=== PATIENT | female | born 1965 | race Caucasian/White ===

== ENCOUNTER → 2017-05-21 15:26 | Outpatient (CLI) | payer OTHER, SELFPAY ==
--- NOTE | 2017-05-21 15:28 | VDLE_ITS ---
Reason For Study: swelling RIGHT LEFT CFV is compressible, spontaneous, phasic, GSV is normal. competent and demonstrates normal CFV is compressible, spontaneous, phasic, augmentation. competent, and demonstrates normal Procedure augmentation. Exam performed in department. FV is compressible, spontaneous, phasic, The exam was diagnostic. competent and demonstrates normal A preliminary report was called and/or faxed augmentation. to DR. Muñiz @ [phone]. POP V is compressible, spontaneous, phasic, Images #13 & #14 are Right CFV. competent and demonstrates normal augmentation. T/P Trunk is compressible. PTV is compressible. LT PerV is compressible. Interpretation Summary Deep veins of the left lower extremity are patent and compressible segmentally. There is no evidence of left lower extremity deep vein thrombosis. Valvular competence appears intact within the proximal deep venous system on the left . The left greater saphenous vein appears patent and compressible segmentally. Ordering Physician: Imani Muñiz Referring Physician: Imani Muñiz Performed By: Cielo Hoover, CHEMA, RVT
== END ==
PROVIDERS: Family Provider Internal Medicine; PCP Internal Medicine; Visit Provider Internal Medicine
DX: M79.89 Other specified soft tissue disorders (principal)
CPT/HCPCS: 93971

== ENCOUNTER 2017-06-04 15:30 | Outpatient (RCR) | payer OTHER, SELFPAY ==
--- NOTE | 2017-05-10 12:31 | HP.PTEVAL ---
Patient's Visit Information KAROLINA BAUTISTA is a 51 year old F referred to Physical Therapy by DO FILEMON Espinal with a diagnosis of NECK PAIN. Date of Evaluation: 05/10/17 Physical Therapist: Aretha Henderson - Visit Plan Frequency: 2-3x /Week Duration: 4-6 Weeks Plan: POSTURE CORRECTION/STRENGTHENING, INSTRUCTION IN APPROPRIATE BODY MECHANICS/ERGONOMICS AND ACTIVITY MODIFICATIONS. CERVICAL HANNAH SB STRETCHING AND RETRACTION. HANNAH UE ROM, STRETCHING AND STRENGTHENING. HEP INSTRUCTION. CERVICAL STM, US AND E-STIM. CONSIDER DRY NEEDLING. 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 Disability: NO. Present symptoms: HANNAH POSTERIOR NECK PAIN. NO UE SX'S. Present since: ABOUT 6 MONTHS AGO. Pain Scale: WORST 8/10, LEAST 2/10. Currently: 2/10. Commenced as a result of: NO APPARENT REASON. Symptoms at onset: SAME. Worse: STRESS, GETTING IN A HURRY AT WORK, GETTING IN THE CAR AND LOOKING BACK. MOSTLY TURNING HEAD LEFT AND RIGHT. Better: MUSCLE RELAXER, STRETCHING, YOGA, MASSAGE. Disturbed sleep: NO. Previous history/Previous treatment: UNREMARKABLE. NO CHIROPRACTOR. NO SHON'S. NO NECK SURGERY. MASSAGE RECENTLY HELPED. Gait: NORMAL. Accidents: NO. Unexplained weight loss: NO. Imaging: NECK X-RAY - ARTHRITIS. DDD. PMH: DEPRESSION, OVER ACTIVE BLADDER. 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 - Objective Sitting Posture: POOR. Standing Posture: FAIR. PATIENT HAS FORWARD HEAD AND ROUNDED SHOULDERS. Lateral shift: NO TORTICOLLIS. Relevant shift: N/A. Active Correction of posture: BETTER. Other Observations: PATIENT IS PLEASANT AND COOPERATIVE TO WORK WITH. Motor deficit: HANNAH UE'S 5/5 WITH MMT AND HANNAH SYSTEMS ADMINISTRATION ANALYST 55 LBS. Sensory deficit: HANNAH UE LIGHT TOUCH SENSATION IS INTACT AND SYMMETRICAL. ROM deficit: HANNAH UE ROM WFL AND NO PAIN WITH TESTING. Dural Signs: NEGATIVE. CERVICAL MVMT LOSS: FLEX - NIL, EXT - MIN, PRO - NIL, RET - MOD, HANNAH ROT - NIL, HANNAH SB - MOD. WITH LEFT ROATION PATIENT HAS AUDIBLE AND VISUAL POPPING/CLINCKING IN HER NECK. AT TIMES IT IMPROVED WITH REPETITION AND AT TIMES IT DIDN'T. SHE WAS TESTED IN ERECT, SLOUCHED AND PARTIALLY SLOUCHED POSTURES WITHOUT CONSISTENCY IN THE CLICKING. OVER-ALL SHE FELT BETTER AFTER THE TESTING THOUGH REPORTING 1/10 NECK PAIN. SCAPULAR STRENGTH - POOR. Palpation: INCREASED MUSCLE TONE WITH MULTIPLE TRIGGER POINTS HANNAH UT'S. NO TENDERNESS WITH PALPATION OF CERCICAL SPINOUS PROCESSES. - Goals Goal 1:: DECREASE C/O NECK PAIN AND CLICKING/POPPING Goal Time Frame: 4-6 Weeks Goal 2:: IMPROVE WORKING, READING, DRIVING AND RECREATIONAL FUNCTION Goal Time Frame: 4-6 Weeks Goal 3:: INSTRUCT IN PROPHYLAXIS Goal Time Frame: 4-6 Weeks - Rehabilitation Potential Rehabilitation Potential: Good - Anticipated Interventions Patient/Client Instruction: Educate patient on: Condition, Plan of Care, Risk Factors, Benefits of Fitness Program For the Purpose of:: To improve self management Therapeutic Exercise to Include: Strength training, Body mechanics, Postural training, Flexibilty training, Scapular Strength/Stabilization For the Purpose of:: To improve ability of physical actions for home/community/work/leisure Manual Therapy Techniques to Include: Soft tissue mobilization For the Purpose of:: To decrease pain, To increase ROM TENS: Yes Cryotherapy (ice pack, ice massage): Yes Thermo therapy (hot pack): Yes Ultrasound (thermal/non thermal): Yes For the Purpose of:: To decrease pain, To decrease swelling/inflammation, To increase ROM Thank you for the opportunity to evaluate your patient. For Medicare and Medicare HMO plans, please review the plan of care and approve it. It will need to be FAXED BACK to us at [phone] for Medicare purposes. Please let me know if there are questions or concerns regarding this plan of care. Physician Signature: Date:
--- NOTE | 2017-06-04 16:07 | HP.PTDCSUM ---
HP - PT D/C Summary It has been my pleasure to treat KAROLINA BAUTISTA under orders from Imani Morse DO, for the diagnosis of NECK PAIN for a total of 10 visit(s). Discharge Date: Please see the following information for a summary of their discharge status. - Subjective Subjective: PATIENT REPORTS SHE IS ABOUT 85% BETTER AND STILL IMPROVING. PATIENT STATES SHE FEELS SHE CAN CONTINUE WITH THE EX'S INDEP'LY AT THIS TIME. SHE REPORTS SHE DOESN'T HAVE ANY PAIN RIGHT NOW BUT DOES REPORT SOME NECK SORENESS THAT SHE RELATES TO DOING THE EX'S. PATIENT REPORTS SHE THINKS THE TRACTION HELPED A LOT. - Pain L c-spine Pain Intensity (Out of 10): 0 - Overall Improvement % Improvement: 85 - Objective Objective/Function: ALL GOALS MET. PATIENT IS HAVING MUCH LESS PAIN AND IS INDEP WITH AN EX PROGRAM AT THIS POINT. SHE IS HOWEVER STILL HAVING A LITTLE BIT OF CLICKING INTERMITTENTL WITH LEFT CERVICAL ROTATION. I ENCOURAGED HER TO FOLLOW UP WITH DR. MORSE SCHEDULED AND PATIENT IS AGREEABLE. - Goals Goal 1:: DECREASE C/O NECK PAIN AND CLICKING/POPPING Goal Progress: Goal Met Goal 2:: IMPROVE WORKING, READING, DRIVING AND RECREATIONAL FUNCTION Goal Progress: Goal Met Goal 3:: INSTRUCT IN PROPHYLAXIS Goal Progress: Goal Met - Plan Plan: D/C TO INDEP EX PROGRAM. PATIENT AGREEABLE. PATIENT MAY NEED MORE TRACTION TREATMENTS IF ALL SYMPTOMS DO NOT RESOLVE WITH EX AT THIS POINT. - D/C Information If there are questions or concerns regarding this patient's physical therapy, please feel free to call me at [phone]. Thank you for the referral of this patient. Sincerely, Aretha Henderson
== END 2017-06-04 19:00 | disposition home or self-care (01) ==
LOC: PT 15:30
PROVIDERS: Family Provider Internal Medicine; PCP Internal Medicine; Visit Provider Internal Medicine
DX: M54.2 Cervicalgia (principal)
CPT/HCPCS: 97012; 97110; 97162; 97530

== ENCOUNTER → 2018-01-09 15:58 | Outpatient (CLI) | payer OTHER, SELFPAY ==
--- NOTE | 2018-01-09 15:59 | BI_ITS ---
MAMMOGRAPHY - BILATERAL SCREENING REASON FOR EXAM: Female, 52 years old. Routine annual screening examination. PERTINENT HISTORY: FAM HX MOTHER AGE 60 BILAT STEREOS 2009, LT STEREO BX 11/23/16 PT C/O BILAT BREAST FULLNESS. TECHNIQUE: Digital bilateral breast julio (3D mammographic acquisition) in the CC and MLO projections. 2-D mediolateral oblique (MLO) and craniocaudad (CC) views of both breasts were obtained. CAD: Full Field Digital Mammography with Computer Added Detection was performed. COMPARISON: Sep 29 2016 10:43am FINDINGS: Breast Composition: The breasts are extremely dense, which lowers the sensitivity of mammography. There are no dominant masses or suspicious calcifications. No other significant abnormalities are identified. BI/SCREENING MAMM (CAD), BILAT IMPRESSION: Stable bilateral screening mammogram. Yearly follow-up mammogram recommended. (A) ASSESSMENT CATEGORY: BIRADS Category 2: Benign. A letter regarding these results will be sent to the patient by the facility within 30 days. Approximately 10% of breast cancers are not detected by mammography. A normal mammogram should not delay biopsy of a clinically suspicious abnormality. [id number] Electronically Signed: Shavonne Chowdary MD at 14:17 EDT Tel , Service support ,
== END ==
PROVIDERS: Family Provider Internal Medicine; PCP Internal Medicine; Referring Provider Internal Medicine; Visit Provider Internal Medicine
DX: Z12.31 Encounter for screening mammogram for malignant neoplasm of breast (principal)
CPT/HCPCS: 77063; 77067

== ENCOUNTER → 2018-09-13 14:15 | Outpatient (CLI) | payer OTHER, SELFPAY ==
[2018-03-26 15:23] VITALS: BMI 23.1
--- NOTE | 2018-09-13 14:18 | US_ITS ---
STUDY: ULTRASOUND SOFT TISSUES REASON FOR EXAM: Female, 53 years old. Enlarged lymph nodes TECHNIQUE: Ultrasound evaluation of the neck and facial region was performed to evaluate for lymphadenopathy with real-time and static judd-scale imaging. COMPARISON: None. FINDINGS: There are bilateral mildly enlarged submandibular lymph nodes. There is a 1.8 x 0.9 x 0.4 cm right submandibular lymph node. There is a 1.5 x 0.9 x 0.5 cm left submandibular lymph node. There are no other enlarged lymph nodes within the neck. US/Head/Neck Soft Tissue IMPRESSION: Bilateral mildly enlarged submandibular lymph nodes which most likely are benign infectious/inflammatory, reactive. However pathologic adenopathy secondary to lymphoma or metastatic disease cannot be excluded. Electronically Signed: Mauricio Sue, at 23:32 EDT Tel , Service support ,
== END ==
PROVIDERS: Family Provider Internal Medicine; PCP Internal Medicine; Referring Provider Internal Medicine; Visit Provider Internal Medicine
DX: R59.0 Localized enlarged lymph nodes (principal)
CPT/HCPCS: 76536

== ENCOUNTER → 2019-03-14 13:58 | Outpatient (CLI) | payer OTHER, SELFPAY ==
[2018-03-26 15:23] VITALS: BMI 23.1
--- NOTE | 2019-03-14 14:01 | US_ITS ---
STUDY: Soft tissue neck ULTRASOUND REASON FOR EXAM: Female, 53 years old. Lymphadenopathy TECHNIQUE: Ultrasound evaluation of the soft tissue neck was performed with real-time and static judd-scale imaging. COMPARISON: None. FINDINGS: Multiple longitudinal and transverse ultrasound images of the neck demonstrate some normal-sized lymph nodes bilaterally measuring 5 mm in short axis diameter. US/Head/Neck Soft Tissue IMPRESSION: Normal bilateral lymph nodes. Electronically Signed: Gurwinder Castellanos MD at 15:49 EST Tel , Service support ,
== END ==
PROVIDERS: Family Provider Internal Medicine; PCP Internal Medicine; Referring Provider Internal Medicine; Visit Provider Internal Medicine
DX: R59.0 Localized enlarged lymph nodes (principal)
CPT/HCPCS: 76536

== ENCOUNTER → 2019-04-22 16:12 | Outpatient (CLI) | payer OTHER, SELFPAY ==
[2019-03-27 15:52] VITALS: BMI 23.1
--- NOTE | 2019-04-22 16:13 | BI_ITS ---
MAMMOGRAPHY - BILATERAL SCREENING REASON FOR EXAM: Female, 53 years old. Routine annual screening examination. PERTINENT HISTORY: Mother with breast cancer. History of bilateral stereotactic breast biopsy. TECHNIQUE: Digital bilateral breast eve (3D mammographic acquisition) in the CC and MLO projections. 2-D mediolateral oblique (MLO) and craniocaudad (CC) views of both breasts were obtained. CAD: Full Field Digital Mammography with Computer Added Detection was performed. COMPARISON: Comparison is made with prior study January 09, 2018 and September 29, 2016. FINDINGS: Breast Composition: The breasts are extremely dense, which lowers the sensitivity of mammography. I suspect bilateral breast nodules although it is difficult to definitely isolate them within the dense breasts. Correlation with ultrasound recommended. Tissue clip marker is seen in the 12:00 position of the left breast as well as in the upper deep medial portion of the right breast in keeping with prior Sterotactic breast biopsies. No other significant abnormalities are identified. There has been no significant change since the prior study. BI/SCREEN MAMM (CAD) W/EVE BILAT IMPRESSION: Stable bilateral screening mammogram. Correlation with bilateral breast ultrasound recommended to assess for possible cysts. ASSESSMENT CATEGORY: BIRADS Category 0: Incomplete. Need additional imaging evaluation. A letter regarding these results will be sent to the patient by the facility within 30 days. Approximately 10% of breast cancers are not detected by mammography. A normal mammogram should not delay biopsy of a clinically suspicious abnormality. [id number] Electronically Signed: Bob Keating, at 8:50 EST , Service support ,
== END ==
PROVIDERS: Family Provider Internal Medicine; PCP Internal Medicine; Referring Provider Nurse Practitioner Women's Health; Visit Provider Nurse Practitioner Women's Health
DX: Z12.31 Encounter for screening mammogram for malignant neoplasm of breast (principal)
CPT/HCPCS: 77063; 77067

== ENCOUNTER → 2019-04-28 13:59 | Outpatient (CLI) | payer OTHER, SELFPAY ==
[2019-03-27 15:52] VITALS: BMI 23.1
--- NOTE | 2019-04-28 14:03 | US_ITS ---
STUDY: ULTRASOUND BREAST - RIGHT REASON FOR EXAM: Female, 53 years old. Abnormal screening mammogram. TECHNIQUE: Axial and longitudinal images of the RIGHT breast were performed with a high resolution ultrasound transducer. # OF IMAGES: 104 COMPARISON: Comparison is made with prior mammogram dated April 22, 2019. FINDINGS: RIGHT Breast: There is a 1.1 cm x 0.6 cm x 0.5 cm cyst at the 1:00 position of the breast at 3 cm from the nipple. Dilated retroareolar ducts. IMPRESSION: 1.1 cm x 0.6 x 0.5 some intracystic at the 1:00 position of the breast at 3 cm from nipple. Dilated subareolar ducts. ASSESSMENT CATEGORY: BIRADS Category 2: Benign. A letter regarding these results will be sent to the patient by the facility within 30 days. Electronically Signed: Bob Keating, at 13:05 EST , Service support , STUDY: ULTRASOUND BREAST - LEFT REASON FOR EXAM: Female, 53 years old. Abnormal screening mammogram. TECHNIQUE: Axial and longitudinal images of the LEFT breast were performed with a high resolution ultrasound transducer. # OF IMAGES: 104 COMPARISON: Comparison is made with prior mammogram dated April 22, 2019. FINDINGS: LEFT Breast: There is a 9 mm x 7 mm x 4 mm cyst at the 12:00 position of the breast at 2 cm from nipple. Dilated retroareolar ducts. US/Breast Limited Unilateral IMPRESSION: 9 mm x 7 mm x 4 mm cyst at the 12:00 position of the breast at 2 cm some nipple. Dilated subareolar ducts. ASSESSMENT CATEGORY: BIRADS Category 2: Benign. A letter regarding these results will be sent to the patient by the facility within 30 days. Electronically Signed: Bob Keating, at 13:06 EST , Service support ,
== END ==
PROVIDERS: Family Provider Internal Medicine; PCP Internal Medicine; Referring Provider Internal Medicine; Visit Provider Nurse Practitioner Women's Health
DX: R92.8 Other abnormal and inconclusive findings on diagnostic imaging of breast (principal)
CPT/HCPCS: 76642

== ENCOUNTER 2020-02-23 17:18 | Emergency (ER) | payer OTHER, SELFPAY ==
[2019-03-27 15:52] VITALS: BMI 23.1
[2020-02-23 17:19] VITALS: BP 111/66; PULSE 69; RESP 15; TEMP 36.3; O2SAT 100; BMI 22.4
--- NOTE | 2020-02-23 17:36 | EKG12_ITS ---
Test Reason : CP Blood Pressure : / mmHG Vent. Rate : 065 BPM Atrial Rate : 065 BPM P-R Int : 158 ms QRS Dur : 090 ms QT Int : 406 ms P-R-T Axes : 070 051 025 degrees QTc Int : 422 ms Normal sinus rhythm Normal ECG Confirmed by LESTER HENDERSON, REGULO ([id number]), editor publications ANA ENRIQUEZ ([id number]) on 02/24/2020 1:07:39 PM Referred By: LUZ Confirmed By:REGULO BATISTA MD
--- NOTE | 2020-02-23 17:40 | NURSING ---
NO OLD EKGS
--- NOTE | 2020-02-23 17:42 | RAD_ITS ---
STUDY: X-RAY CHEST REASON FOR EXAM: Female, 54 years old. Chest pain. TECHNIQUE: Frontal view of the chest COMPARISON: None. FINDINGS: The lungs are clear and expanded. There is no demonstrated pleural abnormality. Normal size heart. Normal mediastinum and michelle. Normal visualized pulmonary arteries. Normal visualized aortic arch and descending thoracic aorta. Normal visualized thoracic spine. Normal visualized ribs, clavicles, and shoulders. There is no demonstrated abnormality of the visualized soft tissue structures of the upper abdomen. RAD/Chest 1 View (Portable) IMPRESSION: Normal x-ray examination of the chest. Electronically Signed: Hugo Johansen, at 18:14 EST Tel , Service support ,
[2020-02-23 17:51] VITALS: O2SAT 97
[2020-02-23 17:55] LABS: Absolute Lymphocyte Count 1.38 X10^3/uL (0.83-4.51); Absolute Neutrophil Count 4.3 X10^3/uL (2.0-7.7); Basophil# 0.04 X10^3/uL; Basophil% 0.6 % (0-1); Eosinophil# 0.07 X10^3/uL; Eosinophils% 1.1 % (0-5); Hematocrit 39.2 % (37-47); Hemoglobin 12.7 g/dL (12.0-15.0); Lymphocyte # 1.38 X10^3/ul (4.0); Lymphocyte % 21.6 % (19-41); Mean Corp Hgb Conc 32.4 g/dL (32-36); Mean Corpuscular Hgb 31.4 pg (27.0-32.0); Mean Platelet Vol. 10.5 fl (6.2-12.0); Monocyte# 0.63 X10^3/uL; Monocyte% 9.8 % (0-10); NRBC Flagged by Analyzer 0 % (0-5); Neutrophil # 4.27 X10^3/uL (2.7-7.7); Neutrophil % 66.7 % (47-70); Platelet Count 199 K/mm3 (150-450); RBC Distribution Width CV 12.2 % (11.6-14.6); RBC Distribution Width SD 43.9 fl (35.1-43.9); Red Blood Count 4.04 M/mm3 (4.2-5.4); White Blood Count 6.4 K/mm3 (4.4-11.0)
--- NOTE | 2020-02-23 17:55 | ED.DCSUM_ITS ---
History of Present Illness Chief Complaint: Chest Pain Informant: Patient Onset: Today Current Severity: Mild Maximum Severity: Mild Narrative: Patient presents with chest heaviness that has persisted throughout the day. It is not worsened with activity or changed by rest. She denies shortness of breath. No cough or congestion. She does not have a personal history of cardiac disease, however does have significant family history. She states her brother had a stent when he was in his early 50s. Patient states she believes her last stress test was about 10 years ago. She has not noted change in activity tolerance over the past couple of weeks. - Past Medical History (1) High cholesterol Status: Chronic Past Medical History - Allergies and Home Meds Allergies/Adverse Reactions: Allergies No Known Allergies Allergy (Verified 02/23/20 17:20) Primary Care Physician: Imani Muñiz DO [Primary Care Provider] - Prior records reviewed: Yes Smoking Status: Never smoker Review of Systems General: Denies: Chills, Fever Eyes: Denies: Visual changes - bilaterally ENT: Denies: Bilateral ear pain Cardiovascular: Reports: Chest pain Respiratory: Denies: Dyspnea, Cough Gastrointestinal: Denies: Abdominal pain, Nausea, Vomiting, Diarrhea Genitourinary: Denies: Dysuria Musculoskeletal: Denies: Swelling, Extremity Pain Skin: Denies: Rash Hematologic: Denies: Easy bruising, Easy bleeding Allergy: Denies: Uticaria Physical Exam Vital Signs/Narrative: Vital Signs Temp Pulse Resp BP Pulse Ox 02/23/20 17:51 97 02/23/20 17:19 97.3 F L 69 15 111/66 100 Inital Vital Signs reviewed: Yes General: Well nourished, Well developed Head: Normocephalic ENT: Moist mucous membranes Neck: Supple Cardiovascular: Regular rate, Regular rhythm Respiratory: No distress, CTA bilaterally, Chest nontender Abdomen: Soft, Nontender Extremities: Nontender Skin: Normal color Neurological: Alert, Oriented x3 Psychological: Normal affect Diagnostic/Tx/Re-eval Chest X-Ray - ED: 1 View, Read by ED Physician, Normal, Heart, Lungs, Mediastinum Impressions Chest X-Ray 02/23/20 17:42 IMPRESSION: Normal x-ray examination of the chest. Electronically Signed: Hugo Johansen, at 18:14 EST Tel , Service support , 02/23/20 17:42 Chest 1 View (Portable) [RAD] Stat Laboratory Results 02/23/20 02/23/20 17:37 17:37 WBC 6.4 RBC 4.04 L Hgb 12.7 Hct 39.2 MCV 97.0 MCH 31.4 MCHC 32.4 RDW Std Deviation 43.9 RDW Coeff of Jesus 12.2 Plt Count 199 MPV 10.5 Immature Gran % (Auto) 0.200 Neut % (Auto) 66.7 Lymph % (Auto) 21.6 [place] % (Auto) 9.8 Eos % (Auto) 1.1 Baso % (Auto) 0.6 Absolute Neuts (auto) 4.3 Absolute Lymphs (auto) 1.38 Nucleated RBC % 0 Sodium 143 Potassium 4.3 Chloride 107 Carbon Dioxide 32.0 Anion Gap 4 L BUN 14 Creatinine 1.06 H Estim Creat Clear Calc 55.23 Est GFR (MDRD) Af Amer 70 Est GFR (MDRD) Non-Af 58 L BUN/Creatinine Ratio 13.2 Glucose 114 H Calcium 8.9 Troponin I < 0.015 - EKG Initial EKG Interpretation: Sinus Rhythm - Sinus at 65 with no acute ischemia. Follow-up EKG Interpretation: Sinus Bradycardia - Sinus bradycardia 55 bpm. No acute ischemia. - Medical Decision Making Patient was given aspirin on arrival here. She does report chest heaviness throughout the day, but it is not worsened with activity. She denies shortness of breath or any other related symptoms. She does have significant family medical history. Work-up at this time is unremarkable. I did speak with her PCP, Dr. Muñiz. She did recommend a send out Covid test which was obtained. A repeat 3-hour EKG and troponin were also unremarkable. Patient will follow-up for outpatient stress test. If her symptoms worsen she is instructed to return to the emergency room. ED Disposition - Plan for ED Patient: Disposition: Home or Assisted Living Diagnosis: Chest pain Instructions: ED Chest Pain Atypical Unkn Cause Referrals: Imani Muñiz DO [Primary Care Provider] - As soon as possible
[2020-02-23 18:04] LABS: Anion Gap 4 (5-15); BUN 14 mg/dL (7-18); BUN/Creat Ratio 13.2 RATIO (10-20); Calcium,Total 8.9 mg/dL (8.5-10.1); Chloride 107 mmol/L (98-107); Creatinine, Serum 1.06 mg/dL (0.55-1.02); EST Glomerular Filtration Rate 58 mL/min (>60); Est Glom Filt Rate - Afr Amer 70 mL/min (>60); Estimated Creatinine Clearance 55.23 ml/min; Glucose 114 mg/dL (74-106); Potassium 4.3 mmol/L (3.5-5.1); Sodium Level 143 mmol/L (136-145)
[2020-02-23] MEDS: Aspirin 81 MG TAB.CHEW 324 MG PO (19:05)
[2020-02-23 19:06] VITALS: BP 99/70; PULSE 62; RESP 15; O2SAT 99
[2020-02-23 20:00] VITALS: BP 115/63; PULSE 75; RESP 17; O2SAT 99
--- NOTE | 2020-02-23 20:30 | EKG12_ITS ---
Test Reason : REPEAT CP Blood Pressure : / mmHG Vent. Rate : 055 BPM Atrial Rate : 055 BPM P-R Int : 172 ms QRS Dur : 092 ms QT Int : 432 ms P-R-T Axes : 074 056 038 degrees QTc Int : 413 ms Sinus bradycardia Otherwise normal ECG Confirmed by LESTER HENDERSON, REGULO ([id number]), editor publications ANA ENRIQUEZ ([id number]) on 02/24/2020 1:07:52 PM Referred By: SUPRIYA Confirmed By:REGULO BATISTA MD
[2020-02-23 21:00] VITALS: BP 105/71; PULSE 60; RESP 13; O2SAT 95
[2020-02-23 21:57] VITALS: BP 105/71; PULSE 57; RESP 15; O2SAT 96
== END 2020-02-23 21:58 | disposition home or self-care (01) ==
PROVIDERS: Emergency Provider Emergency Medicine; PCP Internal Medicine
DX: R07.9 Chest pain, unspecified (principal); Z20.828 Contact with and (suspected) exposure to other viral communicable diseases; R00.1 Bradycardia, unspecified; E78.00 Pure hypercholesterolemia, unspecified; Z79.899 Other long term (current) drug therapy
CPT/HCPCS: 71045; 80048; 84484; 85025; 87635; 93005; 99284; A4216; U0003

== ENCOUNTER → 2020-03-09 06:48 | Outpatient (CLI) | payer OTHER, SELFPAY ==
[2020-02-23 17:19] VITALS: BMI 22.4
--- NOTE | 2020-03-09 12:01 | STRESSREP ---
Stress Test Report Date: 03-09-2020 Procedure: Exercise tolerance test/imaging study Indications: Chest pain Consent: Per the patient Procedure: The patient exercised on a Miller protocol for 9 minutes completing Stage III achieving a peak heart rate of 171 bpm (102% predicted maximal heart rate) with a peak blood pressure 130/70 mmHg and a peak MET capacity of 10 METs. The baseline ECG demonstrated normal sinus rhythm. The peak exercise ECG demonstrated no obvious ECG changes. There were no cardiac dysrhythmias pretest, during exercise, or recovery. The functional capacity was considered good. There was no complaint of chest discomfort during exercise or recovery. The examination was discontinued secondary to dyspnea. Impression: 1. Technically adequate (percent predicted maximal heart rate greater than 85%) exercise tolerance test 2. Peak exercise ECG with no obvious ECG changes 3. There were no cardiac dysrhythmias pretest, during exercise, or recovery 4. Nuclear images pending Myocardial perfusion imaging study: Technique: The patient was injected with 10.8 mCi of technetium 99m Cardiolite and subsequently rest SPECT Cardiolite nuclear imaging was obtained in the horizontal long, vertical long, and short axis views. The patient exercised on a Miller protocol for 9 minutes completing Stage III achieving a peak heart rate of 171 bpm (102% predicted maximal heart rate) with a peak blood pressure 130/70 mmHg and a peak MET capacity of 10 METs. The patient was injected with 33.3 mCi of technetium 99m Cardiolite and subsequently stress SPECT Cardiolite nuclear imaging was obtained in the horizontal long, vertical long, and short axis views. A gated Cardiolite study at peak stress was obtained. Interpretation: Rest and stress SPECT Cardiolite nuclear imaging status post realignment, normalization, and attenuation correction, demonstrates the appearance of relative uniform tracer uptake and myocardial perfusion appearing within normal limits. There is end systolic thickening and brightening. The gated Cardiolite study demonstrates myocardial thickening and inward wall motion. The reported LVEF is 82%. Impression: 1. Rest and stress SPECT Cardiolite nuclear imaging demonstrate relative uniform tracer uptake and myocardial perfusion appearing within normal limits. 2. The gated Cardiolite study reports an LVEF of 82%. This note was generated with [employer] software. It may contain incorrect words, spelling, and punctuation that were not noted in checking the note before signing.
== END ==
PROVIDERS: PCP Internal Medicine; Referring Provider Internal Medicine; Visit Provider Internal Medicine
DX: R07.9 Chest pain, unspecified (principal)
CPT/HCPCS: 78452; 93017; A9500; A4216

== ENCOUNTER → 2020-05-06 | Outpatient (CLI) | payer OTHER, SELFPAY ==
[2020-05-06 14:30] VITALS: BMI 24.1
[2020-05-12 17:19] LABS: HPV APTIMA, High Risk Positive (Negative)
== END | disposition home or self-care (01) ==
LOC: LABSPEC 15:55
PROVIDERS: PCP Internal Medicine; Referring Provider Nurse Practitioner Women's Health; Visit Provider Nurse Practitioner Women's Health
DX: Z12.4 Encounter for screening for malignant neoplasm of cervix (principal)
CPT/HCPCS: 87624; 88175; G0145

== ENCOUNTER → 2020-05-18 15:45 | Outpatient (CLI) | payer OTHER, SELFPAY ==
[2020-05-06 14:30] VITALS: BMI 24.1
--- NOTE | 2020-05-18 15:47 | BI_ITS ---
MAMMOGRAPHY - BILATERAL SCREENING REASON FOR EXAM: Female, 54 years old. Routine annual screening examination. PERTINENT HISTORY: Mother with breast cancer. TECHNIQUE: Digital bilateral breast eve (3D mammographic acquisition) in the CC and MLO projections. 2-D mediolateral oblique (MLO) and craniocaudad (CC) views of both breasts were obtained. CAD: Full Field Digital Mammography with Computer Added Detection was performed. COMPARISON: Comparison is made with prior examination dated 12/22/2019 and 01/09/2018. FINDINGS: Breast Composition: The breasts are extremely dense, which lowers the sensitivity of mammography. There are no dominant masses or suspicious calcifications. No other significant abnormalities are identified. There has been no significant change since the prior study. BI/SCRN MAMM (CAD)W/EVE BILAT IMPRESSION: Stable bilateral screening mammogram. Yearly follow-up mammogram recommended. (A) ASSESSMENT CATEGORY: BIRADS Category 1: Negative. A letter regarding these results will be sent to the patient by the facility within 30 days. Approximately 10% of breast cancers are not detected by mammography. A normal mammogram should not delay biopsy of a clinically suspicious abnormality. [id number] Electronically Signed: Bob Keating MD at 8:22 EST , Service support ,
== END ==
PROVIDERS: PCP Internal Medicine; Visit Provider Internal Medicine
DX: Z12.31 Encounter for screening mammogram for malignant neoplasm of breast (principal); Z80.3 Family history of malignant neoplasm of breast
CPT/HCPCS: 77063; 77067

== ENCOUNTER 2021-05-09 16:29 | Outpatient (CLI) | payer OTHER, SELFPAY ==
[2021-05-17 08:45] LABS: HPV APTIMA, High Risk Negative (Negative)
== END 2021-05-09 23:59 | disposition short-term general hospital (02) ==
LOC: LABSPEC 16:30
PROVIDERS: PCP Internal Medicine; Referring Provider Nurse Practitioner Women's Health; Visit Provider Nurse Practitioner Women's Health
DX: Z78.0 Asymptomatic menopausal state (principal)
CPT/HCPCS: 87624; 88175; G0145

== ENCOUNTER 2021-05-19 15:04 | Outpatient (CLI) | payer OTHER, SELFPAY ==
--- NOTE | 2021-05-19 15:06 | BI_ITS ---
MAMMOGRAPHY - BILATERAL SCREENING REASON FOR EXAM: Female, 55 years old. Routine annual screening examination. PERTINENT HISTORY: Mother with breast cancer. Remote bilateral stereotactic breast biopsies. TECHNIQUE: Digital bilateral breast eve (3D mammographic acquisition) in the CC and MLO projections. 2-D mediolateral oblique (MLO) and craniocaudad (CC) views of both breasts were obtained. CAD: Full Field Digital Mammography with Computer Added Detection was performed. COMPARISON: Comparison is made with prior study dated 05/18/2020 and 04/22/2019. FINDINGS: Breast Composition: The breasts are extremely dense, which lowers the sensitivity of mammography. There are no dominant masses or suspicious calcifications. A tissue clip marker is seen in the superior anterior aspect of the left breast. A tissue marker is also seen in the upper lateral aspect of the left breast. A tissue clip marker is also seen in the slightly upper medial midportion of the right breast. No other significant abnormalities are identified. There has been no significant change since the prior study. BI/SCRN MAMM (CAD)W/EVE BILAT IMPRESSION: Stable bilateral screening mammogram. Yearly follow-up mammogram recommended. (A) ASSESSMENT CATEGORY: BIRADS Category 2: Benign. A letter regarding these results will be sent to the patient by the facility within 30 days. Approximately 10% of breast cancers are not detected by mammography. A normal mammogram should not delay biopsy of a clinically suspicious abnormality. [id number] Electronically Signed: Bbo Keating MD at 9:03 EST ,
== END 2021-05-19 23:59 | disposition home or self-care (01) ==
LOC: OPBI 15:05
PROVIDERS: PCP Internal Medicine; Referring Provider Nurse Practitioner Women's Health; Visit Provider Nurse Practitioner Women's Health
DX: Z12.31 Encounter for screening mammogram for malignant neoplasm of breast (principal); Z80.3 Family history of malignant neoplasm of breast
CPT/HCPCS: 77063; 77067

== ENCOUNTER → 2022-05-15 | Outpatient (CLI) | payer OTHER, SELFPAY ==
[2022-05-22 23:17] LABS: HPV APTIMA, High Risk Negative (Negative)
== END | disposition home or self-care (01) ==
LOC: LABSPEC 16:59
PROVIDERS: PCP Internal Medicine; Referring Provider Nurse Practitioner Women's Health; Visit Provider Nurse Practitioner Women's Health
DX: Z12.4 Encounter for screening for malignant neoplasm of cervix (principal)
CPT/HCPCS: 87624; 88175; G0145

== ENCOUNTER → 2022-05-22 | Outpatient (CLI) | payer OTHER, SELFPAY ==
--- NOTE | 2022-05-22 14:57 | BI_ITS ---
MAMMOGRAPHY - BILATERAL SCREENING REASON FOR EXAM: Female, 56 years old. Routine annual screening examination. PERTINENT HISTORY: Mother with breast cancer. Prior bilateral stereotactic breast biopsies. TECHNIQUE: Digital bilateral breast eve (3D mammographic acquisition) in the CC and MLO projections. 2-D mediolateral oblique (MLO) and craniocaudad (CC) views of both breasts were obtained. CAD: Full Field Digital Mammography with Computer Added Detection was performed. COMPARISON: Comparison is made with the prior examination dated 05/19/2021 and 05/18/2020. FINDINGS: Breast Composition: The breasts are extremely dense, which lowers the sensitivity of mammography. There are no dominant masses or suspicious calcifications. A tissue clip marker is once again seen in the superior anterior aspect the left breast as well as in the upper lateral aspect of the right breast. No other significant abnormalities are identified. There has been no significant change since the prior study. BI/SCRN MAMM (CAD)W/EVE BILAT IMPRESSION: Stable bilateral screening mammogram. Yearly follow-up mammogram recommended. (A) ASSESSMENT CATEGORY: BIRADS Category 2: Benign. A letter regarding these results will be sent to the patient by the facility within 30 days. Approximately 10% of breast cancers are not detected by mammography. A normal mammogram should not delay biopsy of a clinically suspicious abnormality. [id number] Electronically Signed: Bob Keating MD at 15:26 EST ,
== END | disposition home or self-care (01) ==
LOC: OPBI 14:55
PROVIDERS: PCP Internal Medicine; Referring Provider Internal Medicine; Visit Provider Internal Medicine
DX: Z12.31 Encounter for screening mammogram for malignant neoplasm of breast (principal); Z80.3 Family history of malignant neoplasm of breast
CPT/HCPCS: 77063; 77067

== ENCOUNTER → 2022-06-29 | Outpatient (CLI) | payer OTHER, SELFPAY ==
--- NOTE | 2022-06-29 | IMM_PTH ---
PATIENT: KAROLINA BAUTISTA LOC: [facility] U#:[id number] AGE/SX: 56/F ROOM: RE06/29/[address]: Dr. Ellen Eden DO : 1965 BED: DIS: 06/29/2022 SPEC #: [id number] RECD: 07/03/22 12:39 STATUS: JOLIE REQ #: [id number] CRICKET: 06/29/22 00:[address]: Ellen Eden DEPT: IMMUNOHISTOCHEMISTRY RECD BY: Nyasia Chatman ENTERED: 07/03/22 12:39 SP TYPE: IMMUNO OTHR DR: Dr. Imani Muñiz DO Tissues: A - Endocervical Procedures: p16 (initial) KI-67 (add) PHYSICIAN & INSTITUTION [place] [address] SPECIMEN INFORMATION: Tissue Source: A ? Endocervical curettings Clinical Info: MARY, cervical polyp Specimen Number: [id number] CPT code: 14074, 95072 METHODOLOGY: Deparaffinized sections of prefer/formalin-fixed tissue or PAP/DQ stained slides are incubated with monoclonal/polyclonal antibodies/oligonucleotide probes. Localization is made via biotin free immunoperoxidase method. Appropriate controls are performed and reacted as expected. Results on target cell population are indicated in the following table: RESULTS: ANTIBODY / CLONE RESULT Block A P16 (E6H4) positive, focal, patchy Ki-67 (30-9) negative These tests were developed and their performance characteristics determined by [facility]. They may not have been cleared or approved by the U.S. Food and Drug Administration. The FDA has determined that such clearance or approval is not necessary. The above immunohistochemical/dualISH markers are ordered and reviewed by the Pathologist. INTERPRETATION: A. Endocervical curettings: Focal HPV change present. AM:be 07/04/2022
--- NOTE | 2022-06-29 | ECC_PTH ---
PATIENT: KAROLINA BAUTISTA LOC: [facility]#:[id number] AGE/SX: 56/F ROOM: RE06/29/[address]: Dr. Ellen Eden DO : 1965 BED: DIS: 06/29/2022 SPEC #: [id number] RECD: 06/29/22 16:21 STATUS: JOLIE SORIATanesha #: [id number] CRICKET: 06/29/22 00:[address]: Ellen Eden DEPT: SURGICAL PATHOLOGY RECD BY: Delta Andrews ENTERED: 06/30/22 08:19 SP TYPE: ECC OTHR DR: Dr. Imani Muñiz DO Tissues: A - Endocervical B - POLYP Procedures: Surgery Specimen Level IV HEADER OPERATION: Colposcopy, polypectomy PRE-OP DIAGNOSIS: LGSIL, cervical polyp TISSUE SUBMITTED: A ? Endocervical curettings, 6 o?clock, B ? Cervical polyp MICROSCOPIC DIAGNOSIS A. Endocervix, curettings: Fragment of cervix with focal changes suspicious for HPV cytopathic change. Squamous metaplasia with chronic inflammation. See comment. B. Cervical polyp, biopsy: Benign endocervical polyp, inflamed. AM:be 07/03/2022 COMMENT A. Results from immunohistochemistry ([id number]) for surrogate HPV marker (p16) will be reported separately. Case has been reviewed in consultation with Dr. Moctezuma who concurs with the above diagnosis. IDC:SJ MICROSCOPIC DESCRIPTION Slides are reviewed. GROSS DESCRIPTION A - Received in fixative is one container labeled with the patient's name and designated 6 o'clock cervix. The specimen consists of one irregular fragment of light sommer soft tissue that measures 0.3 x 0.3 x 0.1 cm. The specimen is totally submitted in one cassette. B - Received in fixative is one container labeled with the patient's name and designated polyp. The specimen consists of a fragment of sommer-pink polyp measuring 2.0 x 0.5 x 0.1 cm. Multiple fragments of sommer soft tissue are also noted that in aggregate measure 1.5 x 1.0 x 0.1 cm. The entire specimen is submitted in one cassette. / BISMARK:be 06/30/2022 TC:3 CPT: 61851 x2
== END | disposition home or self-care (01) ==
LOC: LABSPEC 16:45
PROVIDERS: PCP Internal Medicine; Referring Provider Obstetrics & Gynecology; Visit Provider Obstetrics & Gynecology
DX: R87.612 Low grade squamous intraepithelial lesion on cytologic smear of cervix (LGSIL) (principal); N84.1 Polyp of cervix uteri
CPT/HCPCS: 88305; 88341; 88342

== ENCOUNTER → 2023-05-17 | Outpatient (CLI) | payer OTHER, SELFPAY ==
[2023-05-24 15:08] LABS: HPV APTIMA, High Risk Negative (Negative)
== END | disposition home or self-care (01) ==
LOC: LABSPEC 16:30
PROVIDERS: Referring Provider Nurse Practitioner Women's Health; Visit Provider Nurse Practitioner Women's Health
DX: Z12.4 Encounter for screening for malignant neoplasm of cervix (principal)
CPT/HCPCS: 87624; 88175; G0145

== ENCOUNTER → 2023-05-22 | Outpatient (CLI) | payer OTHER, SELFPAY ==
--- NOTE | 2023-05-22 15:01 | BD_ITS ---
STUDY: DUAL ENERGY X-RAY ABSORPTIOMETRY / DXA REASON FOR EXAM: Female, 57 years old. Z780 TECHNIQUE: Bone Mineral Density (BMD) measurements of lumbar spine and bilateral hips were obtained. COMPARISON: None. FINDINGS: Lumbar Spine (L1-L4): g/cm2 (1.013) / T-score (0.0) / Z-score (1.1) Findings are suggestive of normal bone density with a low fracture risk. Left Femur Total: g/cm2 (0.850) / T-score (-0.8) / Z-score (0.0) Left Femoral Neck: g/cm2 (0.707) / T-score (-1.3) / Z-score (-0.1) Right Femur Total: g/cm2 (0.821) / T-score (-1.0) / Z-score (-0.2) Right Femoral Neck: g/cm2 (0.633) / T-score (-1.9) / Z-score (-0.8) BD/Dexa Bone Density Study IMPRESSION: The patient is considered osteopenic as outlined below according to World Alfredo Organization (WHO) criteria with a moderate fracture risk. Reference Information: The T-score is the number of standard deviations above or below the standard which is normal for young adults at their peak bone mineral density. The World Health Organization (WHO) interprets the T-scores as follows: Above -1 Normal bone density Between -1 and -2.5 Osteopenia Equal to / or below -2.5 Osteoporosis As a practical clinical guideline, osteopenia may be graded as follows: Mild -1 through -1.5 Moderate -1.6 through -2.0 Severe -2.1 through -2.4 The Z-score is the number of standard deviations above or below age-matched controls. A Z-score of less than -1.5 would be considered abnormal. References: 1. NIH Osteoporosis and Related Bone Diseases www osteo.org 2. International Society for Clinical Densitometry www iscd.org 3. National Osteoporosis Foundation www nof.org Electronically Signed: Bob Keating MD at 9:33 EST ,
== END | disposition home or self-care (01) ==
PROVIDERS: Referring Provider Internal Medicine; Visit Provider Internal Medicine
DX: Z78.0 Asymptomatic menopausal state (principal)
CPT/HCPCS: 77080

== ENCOUNTER → 2023-05-24 | Outpatient (CLI) | payer OTHER, SELFPAY ==
--- NOTE | 2023-05-24 15:04 | BI_ITS ---
MAMMOGRAPHY - BILATERAL SCREENING REASON FOR EXAM: Female, 57 years old. Routine annual screening examination. PERTINENT HISTORY: Mother with breast cancer. Bilateral stereotactic breast biopsies. TECHNIQUE: Digital bilateral breast eve (3D mammographic acquisition) in the CC and MLO projections. 2-D mediolateral oblique (MLO) and craniocaudad (CC) views of both breasts were obtained. CAD: Full Field Digital Mammography with Computer Added Detection was performed. COMPARISON: Comparison is made with prior study dated May 22, 2022 and May 19, 2021. FINDINGS: Breast Composition: The breasts are extremely dense, which lowers the sensitivity of mammography. There are no dominant masses or suspicious calcifications. Once again, a tissue clip marker is seen in the superior anterior aspect of the left breast as well as in the upper lateral aspect of the right breast. No other significant abnormalities are identified. There has been no significant change since the prior study. BI/SCRN MAMM (CAD)W/VEE BILAT IMPRESSION: Stable bilateral screening mammogram. Yearly follow-up mammogram recommended. (A) ASSESSMENT CATEGORY: BIRADS Category 2: Benign. A letter regarding these results will be sent to the patient by the facility within 30 days. Approximately 10% of breast cancers are not detected by mammography. A normal mammogram should not delay biopsy of a clinically suspicious abnormality. [id number] Electronically Signed: Bob Keating MD at 8:44 EST ,
== END | disposition home or self-care (01) ==
LOC: OPBI 15:04
PROVIDERS: PCP Internal Medicine; Referring Provider Nurse Practitioner Women's Health; Visit Provider Nurse Practitioner Women's Health
DX: Z12.31 Encounter for screening mammogram for malignant neoplasm of breast (principal); Z80.3 Family history of malignant neoplasm of breast
CPT/HCPCS: 77063; 77067

== ENCOUNTER → 2024-05-19 | Outpatient (CLI) | payer OTHER, SELFPAY ==
[2024-05-23 14:08] LABS: HPV APTIMA, High Risk Positive (Negative)
== END | disposition home or self-care (01) ==
LOC: LABSPEC 16:38
PROVIDERS: PCP Internal Medicine; Referring Provider Nurse Practitioner Women's Health; Visit Provider Nurse Practitioner Women's Health
DX: R87.612 Low grade squamous intraepithelial lesion on cytologic smear of cervix (LGSIL) (principal)
CPT/HCPCS: 87624; 88175; G0145

== ENCOUNTER → 2024-05-26 | Outpatient (CLI) | payer OTHER, SELFPAY ==
--- NOTE | 2024-05-26 09:10 | BI_ITS ---
PROCEDURE: SCRN MAMM (CAD)W/EVE BILAT REASON FOR EXAM: F, Age 58 y/o, annual mammographic follow-up. Mother with breast cancer. History of bilateral stereotactic breast biopsies. TECHNIQUE: Bilateral screening digital breast tomosynthesis with 2D and 3D images. Computer aided detection. COMPARISON: Prior exam(s) dating back to May 24, 2023.. FINDINGS: The breasts are extremely dense which lowers the sensitivity of mammography. A tissue clip marker is seen in the anterior retroareolar region of the left breast as well as in the upper lateral portion of the left breast. A tissue clip marker is also seen in the central medial aspect of the right breast. No suspicious masses, areas of developing architectural distortion, or suspicious calcifications. Stable examination. BI/SCRN MAMM (CAD)W/EVE BILAT IMPRESSION: BI-RADS 2: BENIGN. RECOMMEND ANNUAL MAMMOGRAPHIC SCREENING. Follow-up code: Routine Follow-up The patient will be notified of the results by letter. Reading Location: [facility]
== END | disposition home or self-care (01) ==
LOC: OPBI 09:09
PROVIDERS: PCP Internal Medicine; Referring Provider Internal Medicine; Visit Provider Internal Medicine
DX: Z12.31 Encounter for screening mammogram for malignant neoplasm of breast (principal); Z80.3 Family history of malignant neoplasm of breast
CPT/HCPCS: 77063; 77067

== ENCOUNTER → 2024-06-20 | Outpatient (CLI) | payer OTHER, SELFPAY ==
--- NOTE | 2024-06-20 15:00 | EMB_PTH ---
PATIENT: KAROLINA BAUTISTA LOC: [facility]#:[id number] AGE/SX: 58/F ROOM: RE06/20/[address]: Dr. Ellen Eden DO : 1965 BED: DIS: 06/20/2024 SPEC #: [id number] RECD: 06/23/24 09:22 STATUS: JOLIE RETanesha #: [id number] CRICKET: 06/20/24 15:[address]: Ellen Eden DEPT: SURGICAL PATHOLOGY RECD BY: Gagan Torres ENTERED: 06/23/24 09:23 SP TYPE: ENDOM BX/C OT DR: Dr. Imani Muñiz DO Tissues: A - Endocervical B - Uterine cervix, NOS Procedures: Surgery Specimen Level IV HEADER OPERATION: Colposcopy PRE-OP DIAGNOSIS: ASCUS, PHV+ TISSUE SUBMITTED: A- ECC, B- 12o'clock MICROSCOPIC DIAGNOSIS A. Endocervical curettage:Endocervical cells and a few inflammatory cellsB. Cervix, 12:00, biopsy:Koilocytes (JORDY-1)Multinucleate giant cell reactionSquamous metaplasiaEndocervical fragmentsJ Edin HENDERSON, 06/26/2024 MICROSCOPIC DESCRIPTION Slides are reviewed. GROSS DESCRIPTION A. Received in fixative is one container labeled with the patient's name and designated ECC. The specimen consists of a scant amount of soft tissue. The specimen is totally submitted for cell block preparation. B. Received in fixative is one container labeled with the patient's name and designated 12o'clock. The specimen consists of two pieces of reddish tissue. One piece measures 0.4 x 0.3 x 0.1cm and the second piece is more gelatinous and measures 0.6 x 0.6 x 0.1cm submitted in total in one cassette. 06/23/2024 CPT:40994c3, TC:1
== END | disposition home or self-care (01) ==
LOC: LABSPEC 15:34
PROVIDERS: PCP Internal Medicine; Referring Provider Obstetrics & Gynecology; Visit Provider Obstetrics & Gynecology
DX: R87.610 Atypical squamous cells of undetermined significance on cytologic smear of cervix (ASC-US) (principal); N85.8 Other specified noninflammatory disorders of uterus
CPT/HCPCS: 88305

== ENCOUNTER → 2024-10-07 | Outpatient (CLI) | payer OTHER, SELFPAY ==
--- NOTE | 2024-10-07 10:30 | MRI_ITS ---
PROCEDURE: BRAIN W/WO CONTRAST 10/07/2024 REASON FOR EXAM: MRI BRAIN WITH AND W/O CONTRAST - ELEVATED PROLACTIN LEVEL. History of craniotomy, for tumor removal, 2000. TECHNIQUE: BRAIN W/WO CONTRAST Multiplanar and multisequence images were obtained. CONTRAST: Clariscan VOLUME: 13 mL COMPARISON: None FINDINGS: Status post right posterior parietal/occipital craniotomy. 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 There is a normal sulcal pattern and gyral configuration. There is no evidence of acute intracranial hemorrhage or infarction. The judd-white differentiation is well preserved. There is no evidence of restricted diffusion. The ventricles and basilar cisterns are normal. There are normal flow voids demonstrated in the recognized intracranial vessels. The cerebellum and brainstem are unremarkable. The cerebellar pontine angles are normal. The craniovertebral junction is normal. There is an empty sella turcica. The pituitary stalk, optic chiasm and suprasellar region are normal. The orbits and retro-orbital regions are unremarkable. The nasal septum is midline. There is no significant paranasal sinus disease. The mastoid air cells are clear. There is normal bone marrow signal in the skull base and calvarium. MRI/Brain W/WO Contrast IMPRESSION: 1. There is an empty sella turcica. This can be a cause of elevated prolactin level. The mechanism of this phenomenon remains unclear. 2. An empty sella turcica can be indicative of increased intracranial pressure (pseudotumor cerebri). No convincing signs of elevated intracranial pressure, other than the presence of empty sella turcica, are identified on this exam. 3. Status post right posterior parietal/occipital craniotomy and posterior par ietal tumor removal with an area of surrounding encephalomalacia. Reading Location: [id number]
== END | disposition home or self-care (01) ==
PROVIDERS: PCP Internal Medicine; Referring Provider Internal Medicine; Visit Provider Internal Medicine
DX: R79.89 Other specified abnormal findings of blood chemistry (principal)
CPT/HCPCS: 70553; A9575